=== PATIENT | female | born 1965 ===

== ENCOUNTER 2017-05-23 21:37 | Emergency (ER) | payer OTHER, MEDICAID ==
[2017-05-23 22:10] VITALS: BP 150/94; TEMP 97.5
[2017-05-23 22:11] VITALS: BMI 26.3
--- NOTE | 2017-05-23 22:25 | ED PDOC ---
Arrival/HPI - General Time Seen by Provider: 05/23/17 22:17 Historian: Patient - History of Present Illness Narrative History of Present Illness (Text): 05/23/17 22:20 52yo female with PMHx of hypertension, vertigo, headache present with complaint of headache since this morning. States headache was intermittent through out the day. Notes that headache is her similar headache. Her MRI 2months ago was normal. States she sees a Neurologist for the headache, but don't like taking medication. States she was nauseous earlier, but it resolved. Denies photophobia , dizziness, facial droop, focal weakness, vomiting, abdominal pain, neck pain, fever, any other complaint. Past Medical History - Provider Review Nursing Documentation Reviewed: Yes Family/Social History - Physician Review Nursing Documentation Reviewed: Yes Family/Social History: Unknown Family HX Allergies/Home Meds Allergies/Adverse Reactions: Allergies No Known Allergies Allergy (Verified 05/23/17 22:10) Home Medications: Home Meds Medication Instructions Recorded Confirmed Gabapentin [Neurontin] 300 mg PO DAILY 05/23/17 05/23/17 Levothyroxine [Synthroid] 25 mcg PO DAILY 05/23/17 05/23/17 Lisinopril [Zestril] 5 mg PO DAILY 05/23/17 05/23/17 Meclizine [Antivert] 12.5 mg PO BID 05/23/17 05/23/17 Review of Systems - Physician Review All systems were reviewed & negative as marked: Yes - Review of Systems Constitutional: Normal Eyes: Normal ENT: Normal Respiratory: Normal Cardiovascular: Normal Gastrointestinal: Normal Genitourinary Female: Normal Musculoskeletal: Normal Skin: Normal Neurological: Headache. absent: Dizziness, Focal Weakness, Gait Changes, Speech Changes, Facial Droop Endocrine: Normal Hemo/Lymphatic: Normal Psychiatric: Normal Physical Exam Vital Signs Reviewed: Yes Vital Signs Temp Pulse Resp BP Pulse Ox 05/23/17 23:26 74 18 100 05/23/17 22:09 97.5 F L 85 20 150/94 H 100 Temperature: Afebrile Blood Pressure: Normal Pulse: Regular Respiratory Rate: Normal Appearance: Positive for: Well-Appearing, Non-Toxic, Comfortable Pain Distress: None Mental Status: Positive for: Alert and Oriented X 3 - Systems Exam Head: Present: Atraumatic, Normocephalic Pupils: Present: PERRL Extroacular Muscles: Present: EOMI Conjunctiva: Present: Normal Mouth: Present: Moist Mucous Membranes Neck: Present: Normal Range of Motion Respiratory/Chest: Present: Clear to Auscultation, Good Air Exchange. No: Respiratory Distress, Accessory Muscle Use Cardiovascular: Present: Regular Rate and Rhythm, Normal S1, S2. No: Murmurs Abdomen: Present: Normal Bowel Sounds. No: Tenderness, Distention, Peritoneal Signs Back: Present: Normal Inspection Upper Extremity: Present: Normal Inspection. No: Cyanosis, Edema Lower Extremity: Present: Normal Inspection. No: Edema Neurological: Present: GCS=15, CN II-XII Intact, Speech Normal, Motor Func Grossly Intact, Normal Sensory Function, Normal Cerebellar Funct, Gait Normal, Memory Normal, Normal 2Pt Descrimination, Other (No focal neurological deficit) Skin: Present: Warm, Dry, Normal Color. No: Rashes Psychiatric: Present: Alert, Oriented x 3, Normal Insight, Normal Concentration Medical Decision Making ED Course and Treatment: 05/23/17 23:46 PT present for stated history. She was neurologically intact. Toradol and Zofran was given in ED. she was hydrated. On re evaluation, she states her headache resolved. Lab was unremarkable. She will be DC home with Fioricet. Referred to her PMD/Neurologist. TRT ED for any new or worsening symptoms - Lab Interpretations Lab Results: 05/23/17 22:55 05/23/17 22:55 Lab Results 05/23/17 22:55: Sodium 143, Potassium 4.0, Chloride 104, Carbon Dioxide 30, Anion Gap 13, BUN 13, Creatinine 0.8, Est GFR ( Amer) > 60, Est GFR (Non- Af Amer) > 60, Random Glucose 133 H, Calcium 9.4, Total Bilirubin 0.4, AST 37 H , ALT 55, Alkaline Phosphatase 58, Total Protein 8.0, Albumin 4.6, Globulin 3.4 , Albumin/Globulin Ratio 1.4 05/23/17 22:55: WBC 7.1, RBC 4.32, Hgb 12.1, Hct 36.6, MCV 84.7, MCH 28.0, MCHC 33.1, RDW 13.6, Plt Count 274, MPV 10.0, Gran % 66.6, Lymph % (Auto) 24.0, Stanley % (Auto) 6.5 H, Eos % (Auto) 2.3, Baso % (Auto) 0.6, Gran # 4.72, Lymph # 1.7, Stanley # 0.5, Eos # 0.2, Baso # 0.04 - Medication Orders Current Medication Orders: Discontinued Medications Ketorolac Tromethamine (Toradol) 30 mg IVP STAT STA Stop: 05/23/17 22:18 Last Admin: 05/23/17 22:47 Dose: 30 mg MAR Pain Assessment Document 05/23/17 22:47 EQ (Rec: 05/23/17 22:48 EQ [place] [id number]) Pain Reassessment Is this a pain reassessment? No Sleep Is patient sleeping during reassessment? No Presence of Pain Presence of Pain Yes IVP Administration Document 05/23/17 22:47 EQ (Rec: 05/23/17 22:48 EQ [place] [id number]) Charges for Administration # of IVP Administrations 1 Ondansetron HCl (Zofran Inj) 4 mg IVP STAT STA Stop: 05/23/17 22:18 Last Admin: 05/23/17 22:48 Dose: 4 mg IVP Administration Document 05/23/17 22:48 EQ (Rec: 05/23/17 22:48 EQ [place] [id number]) Charges for Administration # of IVP Administrations 1 Disposition/Present on Arrival - Present on Arrival Any Indicators Present on Arrival: No History of DVT/PE: No History of Uncontrolled Diabetes: No Urinary Catheter: No History of Decub. Ulcer: No History Surgical Site Infection Following: None - Disposition Have Diagnosis and Disposition been Completed?: Yes Diagnosis: Headache Disposition: HOME/ ROUTINE Disposition Time: 23:50 Patient Plan: Discharge Condition: IMPROVED Discharge Instructions (ExitCare): Acute Headache (ED) Additional Instructions: Follow up with your Doctor/Neurologist Return to ED for any new or worsening symptoms Prescriptions: Acetaminophen/Butalbital/Caf [Fioricet] 1 tab PO Q6 #9 tab
[2017-05-23 23:04] LABS: BASO # 0.04 K/mm3 (0.0-2.0); BASO % 0.6 % (0.0-3.0); EOS # 0.2 (0.0-0.7); EOS % 2.3 % (1.5-5.0); GRAN # 4.72 (1.4-6.5); GRAN % 66.6 % (50.0-68.0); HEMATOCRIT 36.6 % (36.0-48.0); LYMPH # 1.7 (1.2-3.4); MEAN CELL VOLUME 84.7 fl (80.0-105.0); MEAN CORPUSCULAR HGB CONC 33.1 g/dl (31.0-37.0); MONO # 0.5 (0.1-0.6); MONO % 6.5 % (1.0-6.0); RED CELL DISTRIBUTION WIDTH 13.6 % (11.5-14.5); WHITE BLOOD COUNT 7.1 10^3/ul (4.5-11.0)
[2017-05-23 23:11] LABS: ALB/GLOB RATIO 1.4 (1.1-1.8); ALKALINE PHOSPHATASE 58 U/L (38-126); ALT/SGPT 55 U/L (7-56); AST/SGOT 37 U/L (14-36); BILIRUBIN,TOTAL 0.4 mg/dL (0.2-1.3); BLOOD UREA NITROGEN 13 mg/dL (7-21); CALCIUM 9.4 mg/dL (8.4-10.5); CARBON DIOXIDE 30 mmol/L (21-33); CHLORIDE 104 mmol/L (98-107); GFR AFRICAN-AMERICAN > 60; GLUCOSE,RANDOM 133 mg/dL (70-110); SODIUM 143 mmol/L (132-148)
[2017-05-24 00:13] VITALS: PULSE 76; RESP 16; O2SAT 99
== END 2017-05-24 00:13 | disposition home or self-care (01) ==
LOC: ED 21:37
DX: R51 Headache (principal); I10 Essential (primary) hypertension
CPT/HCPCS: 80053; 85025; 96374; 96375; 99285; J1885; J2405